=== PATIENT | female | born 1970 | race Caucasian/White ===

== ENCOUNTER 2021-12-18 13:09 | Emergency (ER) | payer OTHER, SELFPAY ==
[~2021-12-18] VITALS: Ht 157.5 cm; Wt 79.4 kg
[2021-12-18 13:10] VITALS: BP_SYST 147
--- NOTE | 2021-12-18 13:10 | NUR ---
Patient triaged and placed in waiting room. VSS and patient appears in no acute distress at this time. Accompanied by SPOUSE, awaiting available bed, and MD notified of need for MSE.
--- NOTE | 2021-12-18 13:15 | NUR ---
PT OFFERED TO LAY DOWN IN TENT ON ALISA, PT AWAITING FREE ER BED.
--- NOTE | 2021-12-18 14:01 | NUR ---
DR ROBERT OUT TO TENT TO EVALUATE PT, PT UNABLE TO BE LOCATED, NOT IN TRIAGE TENT
--- NOTE | 2021-12-18 14:17 | NUR ---
ATTEMPTED TO FIND PT IN TRIAGE TENT, UNABLE TO LOCATE PT.
== END 2021-12-18 14:27 | disposition left against medical advice (07) ==
LOC: SED 13:09
DX: R11.10 Vomiting, unspecified (principal); Z53.21 Procedure and treatment not carried out due to patient leaving prior to being seen by health care provider